=== PATIENT | female | born 2000 | race Caucasian/White ===

== ENCOUNTER 2021-12-01 20:26 | Emergency (ER) | payer BC ==
[~2021-12-01] VITALS: Ht 160 cm; Wt 44.5 kg
[2021-12-01 20:50] VITALS: BP_SYST 141
--- NOTE | 2021-12-01 22:13 | NUR ---
ER Dr.D' Hurtado in triage examining patient.
[2021-12-01] MEDS ORDERED: ACETAMINOPHEN 500 MG TABLET PO ONE (23:30)
[2021-12-02] MEDS ORDERED: ONDA-8 TL (00:58)
--- NOTE | 2021-12-02 01:00 | NUR ---
Patient ambulatory to bed hallway
[2021-12-02 01:31] VITALS: BP_SYST 131
--- NOTE | 2021-12-02 01:31 | NUR ---
Patient given written and verbal discharge instructions and verbalizes understanding. ER MD discussed with patient the results and treatment provided. Patient in stable condition. Rx of Ondansetran sent to pharmacy given. Patient educated on pain management and to follow up with PMD. Pain Scale 2/10. Opportunity for questions provided and answered.
== END 2021-12-02 01:31 | disposition home or self-care (01) ==
LOC: SED 20:26
DX: S06.0X0A Concussion without loss of consciousness, initial encounter (principal); R11.2 Nausea with vomiting, unspecified; Z79.899 Other long term (current) drug therapy; W22.8XXA Striking against or struck by other objects, initial encounter; Y93.89 Activity, other specified; Y92.89 Other specified places as the place of occurrence of the external cause; Y99.8 Other external cause status
CPT/HCPCS: 70450-TC; 76376; 81025; 99284